=== PATIENT | male | born 1995 | race Asian ===

== ENCOUNTER 2017-04-21 12:34 | Emergency (ER) | payer OTHER ==
[~2017-04-21] VITALS: Ht 182.9 cm; Wt 95.0 kg
[2017-04-21] MEDS ORDERED: SOD CHLORIDE 0.9% 1,000 ML IV STA (12:40)
[2017-04-21 12:44] VITALS: Ht 182.9 cm; Wt 95.0 kg
[2017-04-21] MEDS ORDERED: ADENOSINE 6 MG INJ IV ONE (13:00)
[2017-04-21] MEDS ORDERED: ADENOSINE 3 MG/ML SYRINGE IV ONE (13:00)
[2017-04-21 13:08] LABS: BASOPHILS % 0.3 % (0.0-2.0); EOSINOPHILS % 0.3 % (0.0-7.0); HEMATOCRIT 41.2 % (42.0-52.0); HEMOGLOBIN 14.1 g/dl (14.0-18.0); LYMPHOCYTES # 1.3 10^3/ul (0.8-2.9); LYMPHOCYTES % 18.5 % (15.0-51.0); MEAN CORPUSCULAR HEMOGLOBIN 29.6 pg (29.0-33.0); MEAN CORPUSCULAR HGB CONC 34.2 g/dl (32.0-37.0); MEAN CORPUSCULAR VOLUME 86.6 fl (82.0-101.0); MEAN PLATELET VOLUME 9.4 fl (7.4-10.4); MONOCYTE # 0.5 10^3/ul (0.3-0.9); MONOCYTES % 7.1 % (0.0-11.0); NEUTROPHILS % 73.7 % (39.0-77.0); PLATELET COUNT 243 10^3/UL (140-415); RED BLOOD COUNT 4.76 10^6/ul (4.70-6.10); RED CELL DISTRIBUTION WIDTH 11.9 % (11.5-14.5); WHITE BLOOD COUNT 6.8 10^3/ul (4.8-10.8)
--- NOTE | 2017-04-21 13:14 | RADRPT ---
PROCEDURE: Chest Radiograph. CLINICAL INDICATION: Chest pain TECHNIQUE: Single frontal chest radiograph. COMPARISON: None available FINDINGS: The cardiomediastinal silhouette is within normal limits. No infiltrate or effusion is seen. Th e bones are intact. IMPRESSION: 1. Unremarkable chest radiograph. RPTAT: KK .Jimenez Crum MD, MD Date Time Electronically viewed and signed by .Jimenez Crum MD, on 04/21/2017 13:13 .B/
[2017-04-21 13:27] LABS: CALCIUM 9.7 mg/dl (8.4-10.2); CREATININE 1.49 mg/dl (0.61-1.24); MAGNESIUM 1.9 mg/dl (1.7-2.5)
[2017-04-21 13:39] LABS: TROPONIN-I 0.014 ng/ml (0.00-0.12)
[2017-04-21 13:57] LABS: THYROID STIMULATING HORMONE 1.6 MIU/L (0.465-4.680)
[2017-04-21 13:58] VITALS: BP 114/69; PULSE 88; RESP 18
--- NOTE | 2017-04-21 14:00 | ERD ---
ER Documentation Chief Complaint Date/Time DATE: 04/21/17 TIME: 13:57 Chief Complaint BIBA FOR TACHYCARDIA HPI Patient is a 21-year-old male with no medical problems who presents with SVT. The patient was brought in by ambulance. 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 His blood pressure was 80/60 and his heart rate was 200 and they checked him in the field. His EKG showed SVT. He refused adenosine on the way to the emergency department. He denies chest pain or palpitations at this time. He said that he recently started "drip drop" this week which is an energy supplement. ROS All systems reviewed and are negative except as per history of present illness. Medications Home Meds No Active Prescriptions or Reported Meds Allergies Allergies: Coded Allergies: amoxicillin (Verified Allergy, Severe, 04/21/17) PMhx/Soc Medical and Surgical Hx: pt denies Medical Hx FmHx Family History: diabetes Physical Exam Vitals Vital Signs Date Time Temp Pulse Resp B/P Pulse Ox O2 Delivery O2 Flow Rate FiO2 04/21/17 12:55 Nasal Cannula 2 04/21/17 12:44 98.7 185 20 116/66 95 Physical Exam Const: No acute distress Head: Atraumatic Eyes: Normal Conjunctiva ENT: Normal External Ears, Nose and Mouth. Neck: Full range of motion..~ No meningismus. Resp: Clear to auscultation bilaterally Cardio: Tachycardic rate without murmur Abd: Soft, non tender, non distended. Normal bowel sounds Skin: No petechiae or rashes Back: No midline or flank tenderness Ext: No cyanosis, or edema Neur: Awake and alert Psych: Normal Mood and Affect Result Diagram: 04/21/17 1300 04/21/17 1300 Results 24 hrs Laboratory Tests Test 04/21/17 13:00 White Blood Count 6.810^3/ul Red Blood Count 4.7610^6/ul Hemoglobin 14.1g/dl Hematocrit 41.2% Mean Corpuscular Volume 86.6fl Mean Corpuscular Hemoglobin 29.6pg Mean Corpuscular Hemoglobin Concent 34.2g/dl Red Cell Distribution Width 11.9% Platelet Count 45994^3/UL Mean Platelet Volume 9.4fl Neutrophils % 73.7% Lymphocytes % 18.5% Monocytes % 7.1% Eosinophils % 0.3% Basophils % 0.3% Nucleated Red Blood Cells % 0.0/100WBC Neutrophils # (Manual) 5.010^3/ul Lymphocytes # 1.310^3/ul Monocytes # 0.510^3/ul Eosinophils # 0.010^3/ul Basophils # 0.010^3/ul Nucleated Red Blood Cells # 0.010^3/ul Sodium Level 139mmol/L Potassium Level 4.0mmol/L Chloride Level 106mmol/L Carbon Dioxide Level 24mmol/L Anion Gap 13 Blood Urea Nitrogen 19mg/dl Creatinine 1.49mg/dl Glucose Level 96mg/dl Calcium Level 9.7mg/dl Magnesium Level 1.9mg/dl Troponin I 0.014ng/ml Thyroid Stimulating Hormone (TSH) Pending Free Thyroxine 1.61ng/dl Current Medications Medications (Trade) Dose Ordered Sig/Max Route PRN Reason Start Time Stop Time Status Last Admin Dose Admin Sodium Chloride (NS) 1,000 ml @ 1,000 mls/hr Q1H STAT IV 04/21/17 12:40 04/21/17 13:39 DC 04/21/17 12:55 Adenosine 6 mg ONCE ONCE IV 04/21/17 13:00 04/21/17 13:01 DC Adenosine (Adenosine) 12 mg ONCE ONCE IV 04/21/17 13:00 04/21/17 13:01 DC Procedures/MDM EKG #1 read by me: Rate/Rhythm: SVT at a rate of 196 Intervals: Normal Impression: SVT without ischemia EKG #2 read by me: Rate/Rhythm: Sinus tachycardia intervals: Normal Impression: sinus tachycardia without ischemia Patient is a 21-year-old male who presents with SVT. He was given 6 mg of adenosine and then 12 mg of adenosine and the SVT broke and he is now in normal sinus rhythm. His potassium is normal and his free T4 is normal. Troponin is within normal limits. He was found to have a mildly elevated creatinine of 1.49. The patient was instructed to stop taking "drip drop" which may have contributed to his SVT as it does have extra caffeine he says. The patient will be discharged and can follow-up with his primary doctor tomorrow for reevaluation. He can return sooner for any worsening symptoms. Critical Care: Time: 35 minutes excluding all billable procedures. Treatments/Evaluations: Close monitoring and treatment of unstable vital signs, cardiorespiratory, and neurologic status, while maintaining tight balance of fluid, respiratory, and cardiac interventions. Departure Diagnosis: Primary Impression: SVT (supraventricular tachycardia) Additional Impression: Tachycardia Condition: Fair Patient Instructions: SVT Referrals: Your doctor Additional Instructions: Call your primary care doctor TOMORROW for an appointment during the next 1-2 days.See the doctor sooner or return here if your condition worsens before your appointment time. ELOISE BHAT MD Apr 21, 2017 14:00
== END 2017-04-21 14:14 | disposition home or self-care (01) ==
LOC: E/R 12:34
DX: I47.1 Supraventricular tachycardia (principal)
CPT/HCPCS: 36415; 71010; 80048; 83735; 84439; 84443; 84484; 85025; 93005; 96374; 99291; J0153; J7030